=== PATIENT | female | born 1960 | race African-American/Black ===

== ENCOUNTER 2016-09-11 12:58 | Inpatient (IN) | payer OTHER ==
[~2016-09-11] VITALS: Ht 160 cm; Wt 52.2 kg
[2016-09-11] VITALS (28 sets, daily range): BP systolic 64–155; BP diastolic 37–139
--- NOTE | ~2016-09-11 | CRIT ---
[facility] [place] [address] [place] [address] CRITICAL CARE NOTE Name: JACOB HANNON Room #: 245-P ADM IN M.R.#: [id number] Admission: 09/11/16 Attend Phys: Jameson Mike DO Discharge: Date of : 64 Report #: [id number] THIS REPORT FOR: //name// CC: Jameson Mike DATE OF SERVICE: 09/12/2016 REASON FOR CONSULTATION: Pressure ulcer of the coccyx. HISTORY OF PRESENT ILLNESS: The patient is a very pleasant 56-year-old woman with diabetes mellitus type 2, who has a known sacrococcygeal pressure ulcer and has been seen by Dr. Ruiz Wellington in his outpatient clinics. She is a resident of [facility]. The patient was admitted through the Emergency Room at [facility] yesterday for sepsis with radiograph showing bilateral pulmonary infiltrates and suspected healthcare-associated pneumonia and leukocytosis with elevated white blood count of 22.9 yesterday and 18.4 today. Wound care is consulted due to a sacral or coccygeal pressure ulcer. The patient states that she has had a pressure ulcer in that area for as much as a couple of years and the wound is known to Dr. Ruiz Wellington. Her has noted that the wound has been there for a long time, possibly a couple of years. PAST MEDICAL HISTORY: Diabetes mellitus type 2, asthma, gastroesophageal reflux, history of fibroid tumor, hypertension, history of atrial fibrillation with cardiac ablation, steroid-dependent asthma. MEDICATIONS: Including prednisone 40 mg a day. The patient is now on intravenous antibiotics for her pneumonia, intravenous Zosyn, and vancomycin. It is noted that the patient has severe protein-calorie malnutrition with serum albumin of 1.7. ALLERGIES: The patient has allergies to PROCHLORPERAZINE, SULFA, and KETOROLAC. SOCIAL HISTORY: The patient lives in [facility]. Her is living and very supportive. The patient is a nonsmoker. REVIEW OF SYSTEMS: The patient has debilitating steroid-dependent asthma. PHYSICAL EXAMINATION: GENERAL: Shows an alert and conversant, chronically ill-appearing elderly woman. HEENT: Mucous membranes are moist. Temperature is 37. NECK: Supple. CHEST: Shows decreased breath sounds bilaterally. ABDOMEN: Soft. There are no wounds of the lower extremities. The patient does have an olecranon bursa of the right elbow. Examination of the distal sacrococcygeal area shows an open 1.2 x 1.2 cm ulcer. There is circumferential [address] [address] CRITICAL CARE NOTE Name: JACOB HANNON Room #: 245-P [facility] IN [facility]#: [id number] Admission: 09/11/16 Attend Phys: Jameson Mike, Discharge: Date of : 64 Report #: [id number] undermining of the skin with a wound underneath the ulcer measuring approximately 3 x 4 cm. At the base of the ulcer with my gloved finger, I can palpate rough bone spicules of the coccyx rendering the clinical working diagnosis of osteomyelitis of the coccyx. There is moderate drainage from the wound with no surrounding cellulitis. IMPRESSION: 1. Diabetes mellitus type 2 with skin ulcer. 2. Severe protein-calorie malnutrition, albumin 1.7. 3. Admission with sepsis secondary to pneumonia. 4. Steroid-dependent asthma, on 40 mg of prednisone a day. 5. 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 PLAN: Continue IV antibiotics, Zosyn and vancomycin for the patient's pneumonia. We will pack the wound with Mepilex AG. Once the patient is medically stabilized, ____ management of her sacrococcygeal wound would be open debridement of the wound in the OR with unroofing of the wound to make it larger and easier to treat and debridement and culture of the open spiculated bone, which is clinical osteomyelitis. Wound healing could then be attempted by conventional wound care methods of wound packing or negative pressure wound therapy. We will wait to schedule any operative debridement until the patient's pneumonia is cleared and she is stabilized. We will discuss her case with Dr. Ruiz Wellington, who knows her well. <ELECTRONICALLY SIGNED> By: Rigoberto Palacios MD 09/13/16 1118 1424 0052 Rigoberto Palacios MD /nt
--- NOTE | ~2016-09-11 | O ---
[facility] [place] [address] OPERATIVE REPORT Name: JACOB HANNON Room #: 450-P [facility] IN M.R.#: [id number] Admission: 09/11/16 Attend Phys: Jameson Mike DO Discharge: 09/18/16 Date of : 64 Report #: [id number] THIS REPORT FOR: //name// CC: Jameson Mike DATE OF SERVICE: 09/14/2016 PREOPERATIVE DIAGNOSIS: Chronic stage 4 sacral pressure ulcer with exposed rough bone, clinical osteomyelitis. POSTOPERATIVE DIAGNOSES: Chronic stage 4 sacral pressure ulcer with exposed rough bone, clinical osteomyelitis with chronic sacral pressure sore with large fibrous capsule and exposed area of rough cortical bone (debridement wound 5 cm x 5 cm x 0.4 cm deep). PROCEDURE: Excisional debridement of skin, subcutaneous tissue, muscle, fascia, and bone. PLASTICS PLATER: Rigoberto Palacios MD. ANESTHESIA: Intravenous sedation, local Marcaine 0.25% with epinephrine. INDICATION: The patient is a 56-year-old woman with diabetes and a chronic sacral pressure sore which has been present for as much as 2 years. This was chronic nonhealing. Examination showed at the base of the wound rough bone spicules consistent with bone involvement and clinical osteomyelitis. The patient had been hospitalized for aspiration pneumonia. The patient was stabilized. Informed consent was obtained for excisional debridement of skin, subcutaneous tissue, muscle, fascia, and bone. PROCEDURE DESCRIPTION: With the patient lying in left lateral decubitus position under light intravenous sedation and secured in place. The sacral area was prepared with Betadine solution, sterilely draped in usual fashion. Exam under anesthesia showed an external skin wound measuring approximately 1.5 x 1.5 cm. At the base of the wound, there was exposed rough cortical bone. Marcaine 0.25% with epinephrine was locally infiltrated. Needle tip electrocautery was used to enlarge the external skin opening and an ellipse of skin was incised. It was seen that the patient had a chronic fibrous capsule involving the wound, which was quite large. Using the needle tip electrocautery, skin, subcutaneous tissue, muscle and fascia were excised in such a fashion that the entire fibrous capsule was removed. The fibrous capsule extended to a smaller 1 x 1 cm area of exposed rough bone. The entire capsule of skin, subcutaneous, connective tissue, muscle and fascia was excised. Dealing with the area of bone, a bone rongeur was used to remove the exposed diseased bone, which was relatively limited involvement and it was not necessary to do a deep debridement. Debridement of the bone was relatively superficial. The bone bled. [facility] [address] [address] OPERATIVE REPORT Name: JACOB HANNON Room #: 450-P [facility] IN M.R.#: [id number] Admission: 09/11/16 Attend Phys: Jameson Mike DO Discharge: 09/18/16 Date of : 64 Report #: [id number] hemostasis was achieved. Bone removed was sent for tissue culture. The resulting wound after dissection was a 3 x 3 cm skin wound with a 5 x 5 cm subcutaneous wound making an area of debridement 5 x 5 cm and 0.4 cm deep. Hemostasis was complete. Sterile saline pack was placed. The patient tolerated procedure well. She will be seen by Ayanna Neely, the wound care nurse and wound VAC therapy likely instituted day after surgery. Discussed with Dr. Ruiz Wellington. <ELECTRONICALLY SIGNED> By: Rigoberto Palacios MD 09/19/16 1228 1152 1228 Rigoberto Palacios MD /nt
--- NOTE | ~2016-09-11 | S ---
[facility] [place] [address] SURGICAL PATH RPT PROCEDURE Name: JACOB HANNON Room #: 450-P ADM IN M.R.#: [id number] Admission: 09/11/16 Date of : 64 Discharge: Report #: [id number] Path Case #: [id number] PATHOLOGY REPORT COLLECTION DATE: 09/14/2016 RECEIVED DATE: 09/14/2016 SUBMITTING PHYS: Dr. Rigoberto Palacios OTHER PHYS: Dr. Jameson Mike SPECIMEN(S) RECEIVED: A.Sacral wound tract * * * * * * * * * * * * FINAL DIAGNOSIS: Sacral wound tract, debridement: - Ulceration along with gangrenous necrosis as well as acute inflammation extending into underlying subcutaneous tissue consistent with a wound tract/ulcer. (IUV:csd; d/t: 09/16/2016) PATHOLOGIST: Lydia Roberts M.D. REPORT ELECTRONICALLY SIGNED BY: Lydia Roberts M.D. DATE/TIME: 09/16/2016 16:17 * * * * * * * * * * * * GROSS PATHOLOGY: The specimen is received in formalin, labeled "Jacob Hannon sacral wound tract". Received is an unoriented ellipse of skin with attached subcutaneous tissue measuring 3.5 x 3.2 x 1.5 cm. The epidermal surface displays a linear area of excision that displays a subcutaneous wound tract measuring 3.0 cm. No solid masses or nodules are identified. [employer] sections are submitted in cassette A1. (SNA; 09/15/2016) CLINICAL HISTORY: Chronic sacrococcygeal ulcer stage IV INITIAL CPT CODE(S): A; 75456 Professional services performed by [facility] at [facility] [address] [facility] [address] , [place] [address] Technical services performed by [facility] at [address] [place] [address] [place] [address] SURGICAL PATH RPT PROCEDURE Name: JACOB HANNON Room #: 450-P [facility] IN ..#: [id number] Admission: 09/11/16 Date of : 64 Discharge: Report #: [id number] Path Case #: [id number] [place] [address]. [facility] [address] [address] PHONE: [phone] DIRECTOR: Shabbir Garza M.D. * * * END OF REPORT * * *
--- NOTE | ~2016-09-11 | HC ---
[facility] [address] [place] [address] CONSULTATION Name: JACOB HANNON Room #: 245-P [facility] IN M.R.#: [id number] Admission: 09/11/16 Attend Phys: Jameson Mike DO Discharge: Date of : 64 Report #: [id number] THIS REPORT FOR: //name// CC: Jameson Mike DATE OF SERVICE: 09/11/2016 REASON FOR CONSULTATION: I was asked by Dr. Mike to evaluate the patient concerning sepsis and suspected healthcare-associated pneumonia. HISTORY OF PRESENT ILLNESS: The patient is a 56-year-old with a history of diabetes, asthma and gastroesophageal reflux. She had had a right olecranon bursitis several weeks ago treated at [facility]. Then at [facility], she developed nausea and vomiting and then became encephalopathic, unresponsive and transported to the Emergency Room. There, blood pressure was low. Now on IV fluids and O2 supplementation with a face mask. She has had cough reported with minimal sputum production. No hemoptysis. No chest pain. She has chronic back pain, which she takes fentanyl patchy to control. She states that her nausea has resolved. No diarrhea. No dysuria or frequency. ALLERGIES: PROCHLORPERAZINE, SULFA and KETOROLAC. MEDICATIONS: As noted on her MAR including prednisone 40 mg a day for her asthma. PAST MEDICAL HISTORY: Asthma, gastroesophageal reflux, diabetes, fibroid tumors, hypertension, sinus disease, atrial fibrillation with a heart ablation and neuropathy. FAMILY HISTORY: Noncontributory. SOCIAL HISTORY: Nonsmoker, no significant alcohol intake. REVIEW OF SYSTEMS: As noted above with no additions. PHYSICAL EXAMINATION: VITAL SIGNS: Temperature 99.4, pulse 110, blood pressure 82/41, now on 15 liters and nonrebreather. GENERAL: She is alert and cooperative. SKIN: She has a stage 4 sacral decubitus over the coccyx, approximately 1 cm diameter. It does tunnel several centimeters. Right elbow 1+ olecranon swelling and mild tenderness in the area. Full range of motion in the elbow. No adenopathy. HEENT: Otherwise, unremarkable. NECK: Supple. LUNGS: Coarse breath sounds posterior, no consolidation. [facility] [address] [place] [address] CONSULTATION Name: JACOB HANNON Room #: 245-P [facility] IN M.R.#: [id number] Admission: 09/11/16 Attend Phys: Jameson Mike DO Discharge: Date of : 64 Report #: [id number] HEART: Regular without murmur. ABDOMEN: Soft and nontender, no hepatosplenomegaly or mass. EXTREMITIES: Unremarkable. LABORATORY STUDIES: Lactate was 0.6. ABG on 100% face mask showed a pO2 of 92, pCO2 of 49 and pH 7.39. Sodium 141, potassium 5, bicarbonate of 33, creatinine 1.2, AST 25, lipase 70, alkaline phosphatase 96, ALT 37 and albumin of 2.2. Hemoglobin 9.5, white count 22.9, platelet count 280,000, 73% segs and 1% band. Electrocardiogram, sinus tach, left atrial enlargement, old anterior infarct. Blood cultures are pending. Nasopharyngeal swab influenza antigen pending. Chest x-ray, bilateral patchy interstitial infiltrates with patchy alveolar changes as well. IMPRESSION: A 56-year-old with steroid-dependent asthma and recent right olecranon bursitis, now with suspected healthcare-associated aspiration pneumonia. She had leukocytosis and hypoxia. Her troponin was negative and BNP was moderately elevated at 2000. PLAN: Recommend continuing healthcare-associated antibiotic program while awaiting cultures of sputum and blood. Screens for MRSA. Continue corticosteroids for her asthma. Continue fluid resuscitation and Intensive Care Unit monitoring. <ELECTRONICALLY SIGNED> By: Vitaliy Palmer MD 09/12/16 0935 [id number] [id number] Vitaliy Palmer MD /nt
--- NOTE | ~2016-09-11 | D ---
[facility] [address] [address] DISCHARGE SUMMARY Name: JACOB HANNON Room #: 450-[facility] IN M.R.#: [id number] Admission: 09/11/16 Attend Phys: Jameson Mike DO Discharge: 09/18/16 Date of : 64 Report #: [id number] THIS REPORT FOR: //name// CC: Vitaliy Escobar MD DATE OF SERVICE: 09/18/2016 HOSPITAL COURSE: This 56-year-old black female was admitted from her extended care facility after vomiting and becoming responsive and dropping her blood pressure down to 70 systolic. Chest x-ray on admission suggested multifocal pneumonia. Her past history was significant for multiple comorbidities, just recently discharged from [facility] 09/03/2016 after being treated for cellulitis of the right forearm, right before that she had been admitted there with septic shock and acute kidney failure likely secondary to pneumonia. 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 Churg-Jose syndrome with the eosinophilic granulomatosis diagnosed in 2003 at the [facility]. Septic arthritis of the right shoulder and chronic anxiety, depression. HOSPITAL COURSE: PHYSICAL EXAMINATION: GENERAL: Initial physical revealed a septic appearing hypotensive black female, cushingoid appearance was evident. HEENT: Head and neck was essentially negative. There was no oral thrush. LUNGS: Revealed scattered rhonchi. HEART: Cardiac exam slight tachycardia. ABDOMEN: Soft and nontender. EXTREMITIES: No open sores or significant edema or cellulitis. Sacral wound was deep, but looked clean grossly. NEUROLOGIC: She was alert and oriented, but poor historian. LABORATORY DATA: White cell count was elevated to 22,000, hemoglobin 9.5. Lactic acid normal. , CO2 33, BUN 27, estimated GFR 57. Blood sugar 124, magnesium 1.5. Liver enzymes normal. Albumin low at 2.2. Cardiac enzymes normal. EKG showed sinus tachycardia. The patient was admitted to ICU, seen in consult by Dr. Vitaliy Palmer of Infectious Disease who ordered broad spectrum antibiotics for possible aspiration pneumonia and healthcare-associated pneumonia. Also seen by Dr. Ruiz peñaloza for wound care and after stabilization, he performed a debridement of the wound, also seen Dr. Daniel Escobar [address] [address] DISCHARGE SUMMARY Name: JACOB HANNON Room #: 450-[facility] IN [facility].#: [id number] Admission: 09/11/16 Attend Phys: Jameson Mike, Discharge: 09/18/16 Date of : 64 Report #: [id number] of pulmonary. The patient progressed slowly. Her appetite was poor. Her final hemoglobin was 8 grams, white cell count 8700. Sodium 137, potassium 4.5, BUN 16, creatinine 0.4, estimated GFR 202, blood sugar 147, calcium 7.9, magnesium 1.5. Iron saturation low at 7%. Serum albumin low at 1.9. The patient had physical therapy and required 2 people assist to get up and transfer, her appetite was marginal and she was recommended to consider a feeding tube, if she does not eat enough or for protein levels do not improve. She is considering this. Dr. Ruiz Wellington recommended a wound VAC to be placed at LTAC when she arrives. On 09/18/2016, she was transferred to [facility] on diabetic diet. DuoNeb treatments q. 4 hours while awake. MEDICATIONS: Fentanyl 25 mcg patch every 72 hours, meropenem 500 mg daily for another 10 days through internal jugular central line, flecainide 100 mg b.i.d., diltiazem mg t.i.d., Levemir 20 units nightly, ferrous sulfate 325 mg daily, Eliquis 2.5 mg b.i.d., fenofibrate 160 mg daily, atorvastatin 20 mg daily, lisinopril 20 mg daily, Dilaudid 1 mg IV q. 4 hours p.r.n. severe pain, oxycodone 5 mg q. 6 hours p.r.n. pain, tramadol 100 mg q. 6 hours p.r.n. pain, Lyrica 75 mg b.i.d., citalopram 20 mg daily, hydroxyzine 25 mg t.i.d. p.r.n. itching, Rozerem 8 mg q. p.r.n. sleep, furosemide 40 mg b.i.d., Symbicort 160/4.5 two puffs b.i.d., Mucinex 1200 mg b.i.d., docusate 100 mg b.i.d., famotidine 20 mg b.i.d., prednisone 40 mg daily, metformin 500 mg b.i.d., melatonin 3 mg at bedtime and NovoLog sliding scale 5 units before meals for sugar 150-199, 10 units for 200-249 and 50 units for over 250. If sugars are over 200 twice or 400, physicians to be contacted. Change to change insulin orders. She also remains on Tradjenta 5 mg daily. Overall, prognosis is very guarded as patient has multiple chronic issues and is slowly deteriorating. FINAL DIAGNOSES: 1. Septic shock due to aspiration pneumonia. 2. Stage IV sacral decubitus ulcer. 3. Steroid-dependent chronic obstructive pulmonary disease. 4. Chronic immunosuppression. 5. Severe protein calorie malnutrition. 6. Diabetes mellitus type 2 with neuropathy. 7. Hypertension. 8. History of ventricular tachyarrhythmias. 9. Anxiety, depression. 10. Hyperlipidemia. 11. Obstructive sleep apnea. [facility] [address] [place] [address] DISCHARGE SUMMARY Name: PARVEZMILANSA LARSON Room #: 450-P [facility] IN M.R.#: [id number] Admission: 09/11/16 Attend Phys: Jameson Mike DO Discharge: 09/18/16 Date of : 64 Report #: [id number] 12. Gastroesophageal reflux disease. 13. Hypomagnesemia. By: 0809 0921 Jameson Mike DO /nt
--- NOTE | ~2016-09-11 | H ---
[facility] [place] [address] [place] [address] HISTORY AND PHYSICAL Name: JACOB HANNON Room #: 450-P ADM IN M.R.#: [id number] Admission: 09/11/16 Attend Phys: Jameson Mike DO Discharge: Date of : 64 Report #: [id number] THIS REPORT FOR: //name// CC: Jameson Mike DATE OF SERVICE: 09/11/2016 LOCATION: Room #245. HISTORY OF PRESENT ILLNESS: This 56-year-old black female was admitted through the Emergency Room after having vomited once and becoming unresponsive at the [facility], [facility], where she recently moved. Paramedics were called, and she was found to be responsive but had a blood pressure of only 70 systolic. She was brought to the Emergency Room where she has been given fluid resuscitation, and chest x-ray suggested multifocal pneumonia. The patient and her daughter state the patient seemed well yesterday, having been just discharged from [facility] on 09/03/2016 after having been treated for a cellulitis of her right elbow and forearm. Just before that, she had been discharged from [facility] on 08/20/2016 after being admitted with septic shock and acute kidney failure believed secondary to pneumonia. 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 GYNECOLOGIC HISTORY: Gravid 3, para 3. MEDICATIONS: On admission, CPAP at 10 cm nightly, Eliquis 5 mg b.i.d., oxycodone IR 5 mg q.6h. p.r.n. pain, fentanyl 25 mcg every 72 hours, morphine cream 20 mg with Silvadene 200 g to the sacral ulcer daily, atorvastatin 20 mg daily, flecainide 100 mg daily, Citalopram 20 mg daily, ferrous sulfate 325 mg daily, loratadine 10 mg daily, multivitamin 1 daily, docusate 100 mg b.i.d., Symbicort 160/4.5 two puffs b.i.d., melatonin 3 mg at bedtime, hydroxyzine 25 mg t.i.d., diltiazem 60 mg t.i.d., guaifenesin 40 mg t.i.d., fenofibrate 160 mg daily, furosemide 40 mg b.i.d., Lyrica 75 mg b.i.d., Zolpidem 10 mg p.r.n. sleep, DuoNeb 4 times a day, doxycycline 100 mg b.i.d. since discharge from [facility] for cellulitis of her right forearm, alprazolam 0.25 mg q.6h. p.r.n. anxiety, prednisone 40 mg daily, lisinopril 20 mg daily, NovoLog 10 units before [facility] [address] [place] [address] HISTORY AND PHYSICAL Name: JACOB HANNON Room #: 450-P [facility] IN M.R.#: [id number] Admission: 09/11/16 Attend Phys: Jameson Mike, DO Discharge: Date of : 64 Report #: [id number] meals; however, if her sugar is 200-245, she takes an additional 5 units; for sugars 250-290, additional 8 units and for over 300, she is to call nurses to call for orders. ALLERGIES: COMPAZINE, SULFA, ADHESIVE TAPE and TORADOL. REVIEW OF SYSTEMS: The patient when she is well is able to walk a few feet with a walker. She had not been nauseated before vomiting earlier today. She enjoys where she is living. She denies chest pain. Says she has been having a lot of yellow sputum, having difficulty coughing it up. PHYSICAL EXAMINATION: GENERAL: Tachypneic hypotensive black female who recognized me immediately, looking chronically ill. VITAL SIGNS: Blood pressure 77/66, pulse 110, respirations 20 and temperature 37.4. HEAD: Cushingoid appearance. No rash. EARS, NOSE AND THROAT: Mucosa dry. No oral thrush. EYES: No icterus. NECK: Supple. LUNGS: Cough is bronchitic. Lungs revealed diffuse rhonchi. Usually she has wheezing or rhonchi in her lungs on a chronic basis. HEART: Tachycardia without gallop. ABDOMEN: Soft, without mass or tenderness. EXTREMITIES: No edema or cellulitis. SKIN: She has a small, deep coccyx ulcer which is approximately 4 cm in diameter, which looks clean. NEUROLOGIC: She is alert and oriented, is a fairly accurate historian. No lateralized deficits. RADIOLOGY: Chest x-ray shows multifocal infiltrates. LABORATORY DATA: Lactate normal. White count 22,000 and hemoglobin 9.5. Sodium 141, potassium 5.0, CO2 of 33, BUN 27 and creatinine ____. Estimated GFR 57. Blood sugar 124. Magnesium 1.5. Liver enzymes normal. Albumin low at 2.2. Lipase slightly below normal. Cardiac enzymes negative. EKG shows sinus tachycardia. IMPRESSION: 1. Septic shock, possibly secondary to pneumonia. 2. Chronic immunosuppression. 3. Steroid-dependent chronic obstructive pulmonary disease. 4. Obstructive sleep apnea. 5. Insulin-dependent diabetes mellitus with neuropathy. 6. Anxiety and depression. 7. Multiple osteoporotic compression fractures with chronic pain. [facility] [address] [place] [address] HISTORY AND PHYSICAL Name: PARVEZJACOB LARSON Room #: 450-P [facility] IN .R.#: [id number] Admission: 09/11/16 Attend Phys: Jameson Mike DO Discharge: Date of : 64 Report #: [id number] 8. History of supraventricular tachycardia. 9. Iron deficiency anemia. 10. History of Churg-Jose syndrome. 11. Stage 4 coccyx ulcer. PLAN: ID, pulmonary and wound care consultants, fluid rehydration, broad spectrum antibiotics, culture is pending, bronchodilators and steroids. PROGNOSIS: Guarded. The patient does request full code and all heroic measures. <ELECTRONICALLY SIGNED> By: Jameson Mike DO 09/16/16 0700 [id number] Jameson Mike DO /nt
--- NOTE | ~2016-09-11 | EKG ---
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
[~2016-09-11 12:58] MED LIST: ALBUTEROL NEB; BENICAR40 MG PO; FLEXERIL PO; GLUCOPHAGE; LANOXIN 0.120.125 M1 PG; LANTUS SC; NORCO 7.5-3251 EACH PO; NORFLEX100 MG PO; NOVOLOG100 UNIT/1 SQ; PERCOCET 5-3251 EACH PO; PREDNISONE PO; SPIRIVA INH; SYMBICORT; VERAPAMIL E.R240 M1 PO; VICODIN 5-5001 EACH PO
[2016-09-11 13:36] LABS: HEMATOCRIT 30.1 % (37.0-47.0); HEMOGLOBIN 9.5 gm/dL (12.0-15.0); MCH 27.1 pg (26.0-34.0); MCHC 31.5 g/dL (28.0-37.0); MCV 86.1 fL (80.0-100.0); PLATELET COUNT 280 thou/uL (150-400); RBC 3.49 mil/uL (4.20-5.00); RDW 20.3 % (10.5-14.5); WBC 22.9 thou/uL (4.0-11.0)
[2016-09-11 13:38] LABS: MANUAL DIFF YES
[2016-09-11 13:54] LABS: ABSOLUTE NEUTROPHILS 16.9 thou/uL (1.4-8.2); ANISOCYTOSIS 1+; TOTAL CELL COUNT 100
[2016-09-11 14:08] LABS: ALBUMIN 2.2 g/dL (3.4-5.0); ALKALINE PHOSPHATASE 96 U/L (46-116); ANION GAP 5 mmol/L (7-16); BUN 27 mg/dL (7-18); CALCIUM 8.6 mg/dL (8.5-10.1); CHLORIDE 103 mmol/L (98-107); CK-MB MASS 0.7 ng/mL (<0.5-3.6); CO2 33 mmol/L (21-32); CREATININE 1.2 mg/dL (0.6-1.0); GLUCOSE 124 mg/dL (74-106); MAGNESIUM 1.5 mg/dL (1.8-2.4); NT-PRO BRAIN NAT PEPTIDE 2115 pg/mL (<300); SGOT 25 U/L (15-37); SGPT 37 U/L (30-65); SODIUM 141 mmol/L (136-145); TOTAL BILIRUBIN 0.5 mg/dL (<0.1-1.0); TOTAL PROTEIN 6.3 g/dL (6.4-8.2); TROPONIN-I < 0.04 ng/mL (<0.04-0.07)
[2016-09-11 15:04] LABS: ABG SAMPLE TYPE ARTERIAL; BE(vivo) 4.5 mmol/L (-2 to +3); HCO3 30.1 mmol/L (22.0-26.0); LACTATE 1.04 mmol/L (0.5-2.0); O2Hb 94.5 % (92.0-98.0); PCO2 49.9 mmHg (35.0-45.0); PO2 92.4 mmHg (80.0-100.0); pH 7.399 (7.360-7.450); tCO2 31.7 mmol/L (24.0-30.0)
[2016-09-11 15:05] LABS: STICK SITE L.RADIAL
[2016-09-11 15:06] LABS: FIO2 100 %
[2016-09-11] MEDS ORDERED: FLECAINIDE ACET50 M1 PO (16:41)
[2016-09-11] MEDS ORDERED: PEPCID20 MG PO (16:41)
[2016-09-11] MEDS ORDERED: LIPITOR 20 MG T20 M1 PO (16:41)
[2016-09-11] MEDS ORDERED: IRON325 PO (16:42)
[2016-09-11] MEDS ORDERED: CLARITIN10 MG PO (16:42)
[2016-09-11] MEDS ORDERED: CELEXA20 MG PO (16:42)
[2016-09-11] MEDS ORDERED: COLACE100 MG PO (16:42)
[2016-09-11] MEDS ORDERED: HYDROXYZINE HCL25 M1 PO (16:43)
[2016-09-11] MEDS ORDERED: MELATONIN3 MG PO (16:43)
[2016-09-11] MEDS ORDERED: SYMBICORT160 MCG/4. INH (16:43)
[2016-09-11] MEDS ORDERED: TRADJENTA5 MG (16:44)
[2016-09-11] MEDS ORDERED: CARDIZEM60 MG PO (16:44)
[2016-09-11] MEDS ORDERED: METFORMIN HCL500 MG PO (16:44)
[2016-09-11] MEDS ORDERED: LASIX 40 MG TAB40 M2 PO (16:44)
[2016-09-11] MEDS ORDERED: FENOFIBRATE160 MG PO (16:44)
[2016-09-11] MEDS ORDERED: LYRICA 75 MG CA75 MG PO (16:45)
[2016-09-11] MEDS ORDERED: FENTANYL PA50 MCG/HR TRANSDERM (17:08)
[2016-09-11] MEDS ORDERED: OXYCODONE HCL 55 MG PO (17:08)
[2016-09-11] MEDS ORDERED: LISINOPRIL20 MG PO (17:09)
[2016-09-11] MEDS ORDERED: NOVOLOG100 UNIT/1 SUBQ (17:09)
[2016-09-11] MEDS ORDERED: PREDNISONE 20 M20 MG PO (17:09)
[2016-09-11] MEDS ORDERED: LEVEMIR SUBQ (17:09)
[2016-09-11] MEDS ORDERED: ELIQUIS2.5 MG PO (17:10)
[2016-09-11] MEDS ORDERED: TRAMADOL 50 MG50 MG PO (17:10)
[2016-09-11] MEDS ORDERED: MUCINEX TA600 MG/TA2 PO (17:10)
[2016-09-11] MEDS ORDERED: ROZEREM 8 MG TAB8 M1 PO (17:10)
[2016-09-11 20:00] LABS: URINE BILIRUBIN NEGATIVE (Negative); URINE BLOOD 2+ (Negative); URINE COLOR YELLOW; URINE GLUCOSE-RANDOM* 2+ (Negative); URINE KETONES TRACE (Negative); URINE LEUKOCYTES-REFLEX NEGATIVE (Negative); URINE PROTEIN (DIPSTICK) TRACE (Negative); URINE UROBILINOGEN 0.2 E.U./dl (0.2-1.0)
[2016-09-11 20:07] LABS: SQUAMOUS 0-3 Few /LPF (0-3)
[2016-09-11 20:08] LABS: CASTS None Seen /LPF (None Seen); CRYSTALS None Seen /LPF (None Seen); URINE RBC 3-10 Few /HPF (0-2); URINE WBC-REFLEX 0-5 Rare /HPF (0-5)
[2016-09-12] VITALS (56 sets, daily range): BP systolic 67–146; BP diastolic 45–104
[2016-09-12 05:21] LABS: HEMATOCRIT 27.4 % (37.0-47.0); HEMOGLOBIN 8.4 gm/dL (12.0-15.0); MCH 26.9 pg (26.0-34.0); MCHC 30.7 g/dL (28.0-37.0); MCV 87.6 fL (80.0-100.0); PLATELET COUNT 239 thou/uL (150-400); RBC 3.13 mil/uL (4.20-5.00); WBC 18.4 thou/uL (4.0-11.0)
[2016-09-12 05:24] LABS: ALBUMIN 1.7 g/dL (3.4-5.0); ALKALINE PHOSPHATASE 101 U/L (46-116); ANION GAP 9 mmol/L (7-16); BUN 24 mg/dL (7-18); CALCIUM 7.2 mg/dL (8.5-10.1); CHLORIDE 108 mmol/L (98-107); CO2 24 mmol/L (21-32); CREATININE 0.9 mg/dL (0.6-1.0); GLUCOSE 291 mg/dL (74-106); POTASSIUM 4.9 mmol/L (3.5-5.1); SGOT 25 U/L (15-37); SGPT 30 U/L (30-65); SODIUM 141 mmol/L (136-145); TOTAL BILIRUBIN 0.5 mg/dL (<0.1-1.0); TOTAL PROTEIN 5.7 g/dL (6.4-8.2); TROPONIN-I < 0.04 ng/mL (<0.04-0.07)
[2016-09-12 05:41] LABS: MANUAL DIFF YES
[2016-09-12 07:51] LABS: ABSOLUTE NEUTROPHILS 17.7 thou/uL (1.4-8.2); ANISOCYTOSIS 2+; TOTAL CELL COUNT 100
[2016-09-12 07:52] LABS: POLYCHROMASIA OCCASIONAL
[2016-09-13] VITALS (21 sets, daily range): BP systolic 92–129; BP diastolic 55–85
[2016-09-13 04:02] LABS: ALBUMIN 1.8 g/dL (3.4-5.0); CALCIUM 6.9 mg/dL (8.5-10.1); CREATININE 0.8 mg/dL (0.6-1.0); POTASSIUM 4.2 mmol/L (3.5-5.1); TOTAL BILIRUBIN 0.3 mg/dL (<0.1-1.0); TOTAL PROTEIN 5.3 g/dL (6.4-8.2)
[2016-09-13 04:40] LABS: HEMATOCRIT 24.4 % (37.0-47.0); HEMOGLOBIN 7.6 gm/dL (12.0-15.0); MCH 27.4 pg (26.0-34.0); MCV 88.5 fL (80.0-100.0); PLATELET COUNT 231 thou/uL (150-400); RBC 2.76 mil/uL (4.20-5.00); RDW 20.7 % (10.5-14.5); WBC 12.4 thou/uL (4.0-11.0)
[2016-09-13 04:42] LABS: MANUAL DIFF YES
[2016-09-13 05:49] LABS: ABSOLUTE NEUTROPHILS 11.5 thou/uL (1.4-8.2); ANISOCYTOSIS 2+; HYPOCHROMASIA SLIGHT; TOTAL CELL COUNT 100
[2016-09-14 07:08] LABS: HEMATOCRIT 25.1 % (37.0-47.0); HEMOGLOBIN 7.8 gm/dL (12.0-15.0); MCH 27.4 pg (26.0-34.0); MCHC 31.3 g/dL (28.0-37.0); MCV 87.7 fL (80.0-100.0); RBC 2.86 mil/uL (4.20-5.00); RDW 19.6 % (10.5-14.5)
[2016-09-14 07:22] LABS: CALCIUM 7.5 mg/dL (8.5-10.1); CREATININE 0.6 mg/dL (0.6-1.0); POTASSIUM 4.3 mmol/L (3.5-5.1)
[2016-09-14 08:00] VITALS: BP 122/67
[2016-09-14 11:30] VITALS: BP 152/91
[2016-09-14 14:00] VITALS: BP 104/50
[2016-09-14 16:00] VITALS: BP 115/59
[2016-09-14 20:06] VITALS: BP 117/54
[2016-09-15] VITALS (10 sets, daily range): BP systolic 93–149; BP diastolic 40–85
[2016-09-15 04:57] LABS: HEMATOCRIT 25.8 % (37.0-47.0); HEMOGLOBIN 8.2 gm/dL (12.0-15.0); MCH 27.7 pg (26.0-34.0); MCHC 31.7 g/dL (28.0-37.0); MCV 87.3 fL (80.0-100.0); RBC 2.95 mil/uL (4.20-5.00); RDW 20.1 % (10.5-14.5); WBC 9.7 thou/uL (4.0-11.0)
[2016-09-15 05:07] LABS: CALCIUM 8.6 mg/dL (8.5-10.1); CREATININE 0.7 mg/dL (0.6-1.0); POTASSIUM 4.6 mmol/L (3.5-5.1)
[2016-09-16 04:11] VITALS: BP 122/62
[2016-09-16 07:28] LABS: HEMATOCRIT 24.5 % (37.0-47.0); MCH 27.4 pg (26.0-34.0); MCHC 32.5 g/dL (28.0-37.0); MCV 84.5 fL (80.0-100.0); RBC 2.9 mil/uL (4.20-5.00); RDW 19.8 % (10.5-14.5); WBC 8.7 thou/uL (4.0-11.0)
[2016-09-16 07:42] LABS: ALBUMIN 1.9 g/dL (3.4-5.0); CALCIUM 7.9 mg/dL (8.5-10.1); CREATININE 0.4 mg/dL (0.6-1.0); POTASSIUM 4.5 mmol/L (3.5-5.1); TOTAL BILIRUBIN 0.4 mg/dL (<0.1-1.0); TOTAL PROTEIN 5.4 g/dL (6.4-8.2)
[2016-09-16 08:11] VITALS: BP 136/81
[2016-09-16 12:00] VITALS: BP 150/77
[2016-09-16 16:00] VITALS: BP 136/66
[2016-09-16 20:00] VITALS: BP 152/74
[2016-09-17 04:00] VITALS: BP 170/98
[2016-09-17 07:14] VITALS: BP 150/76
[2016-09-17] MEDS ORDERED: DUONEB 2.5-0.5 M3 ML INH (07:32)
[2016-09-17] MEDS ORDERED: FENTANYL PA25 MCG/HR TRANSDERM ×3 (07:33→07:41)
[2016-09-17] MEDS ORDERED: MEROPENEM IV (07:36)
[2016-09-17] MEDS ORDERED: HYDROMORPH1 MG/50 ML IV ×2 (07:37→07:41)
[2016-09-17] MEDS ORDERED: IRON325 PO (07:39)
[2016-09-17] MEDS ORDERED: ELIQUIS2.5 MG PO (07:39)
[2016-09-17] MEDS ORDERED: FENOFIBRATE160 MG PO (07:40)
[2016-09-17] MEDS ORDERED: LIPITOR 20 MG T20 M1 PO (07:40)
[2016-09-17] MEDS ORDERED: LISINOPRIL20 MG PO (07:40)
[2016-09-17] MEDS ORDERED: LYRICA 75 MG CA75 MG PO (07:41)
[2016-09-17] MEDS ORDERED: OXYCODONE HCL 55 MG PO (07:41)
[2016-09-17] MEDS ORDERED: CELEXA20 MG PO (07:41)
[2016-09-17] MEDS ORDERED: TRAMADOL 50 MG50 MG PO (07:41)
[2016-09-17] MEDS ORDERED: COLACE100 MG PO (07:42)
[2016-09-17] MEDS ORDERED: MUCINEX TA600 MG/TA2 PO (07:42)
[2016-09-17] MEDS ORDERED: SYMBICORT160 MCG/4. INH (07:42)
[2016-09-17] MEDS ORDERED: LASIX 40 MG TAB40 M2 PO (07:42)
[2016-09-17] MEDS ORDERED: HYDROXYZINE HCL25 M1 PO (07:42)
[2016-09-17] MEDS ORDERED: ROZEREM 8 MG TAB8 M1 PO (07:42)
[2016-09-17] MEDS ORDERED: METFORMIN HCL500 MG PO (07:43)
[2016-09-17] MEDS ORDERED: PEPCID20 MG PO (07:43)
[2016-09-17] MEDS ORDERED: PREDNISONE 20 M20 MG PO (07:43)
[2016-09-17] MEDS ORDERED: MELATONIN3 MG PO (07:45)
[2016-09-17] MEDS ORDERED: NOVOLOG100 UNIT/1 SUBQ (07:45)
[2016-09-17 11:46] VITALS: BP 141/78
[2016-09-17 15:38] VITALS: BP 129/75
[2016-09-17 19:08] VITALS: BP 160/89
[2016-09-18 03:35] VITALS: BP 159/82
[2016-09-18 07:20] VITALS: BP 125/77
[2016-09-18 11:15] VITALS: BP 137/82
== END 2016-09-18 16:22 | DRG 853 ==
LOC: ER 12:58 → EROBS 15:05 → ICU 15:05 → 4W 09-13 22:47
PROVIDERS: Emergency Medicine; Family Medicine; Internal Medicine; Internal Medicine Pulmonary Disease
PROC: B548ZZA Ultrasonography of Superior Vena Cava, Guidance (ICD-10-PCS; 2016-09-11)
PROC: 02HV33Z Insertion of Infusion Device into Superior Vena Cava, Percutaneous Approach (ICD-10-PCS; 2016-09-11)
PROC: 5A09357 Assistance with Respiratory Ventilation, Less than 24 Consecutive Hours, Continuous Positive Airway Pressure (ICD-10-PCS; 2016-09-12)
PROC: 0QB10ZZ Excision of Sacrum, Open Approach (ICD-10-PCS; principal; 2016-09-14)
DX: A41.9 Sepsis, unspecified organism (principal); L89.154 Pressure ulcer of sacral region, stage 4; E43 Unspecified severe protein-calorie malnutrition; R65.21 Severe sepsis with septic shock; J69.0 Pneumonitis due to inhalation of food and vomit; J96.90 Respiratory failure, unspecified, unspecified whether with hypoxia or hypercapnia; L03.114 Cellulitis of left upper limb; M30.1 Polyarteritis with lung involvement [Churg-Strauss]; M86.8X8 Other osteomyelitis, other site; G82.20 Paraplegia, unspecified; M80.00XA Age-related osteoporosis with current pathological fracture, unspecified site, initial encounter for fracture; J45.909 Unspecified asthma, uncomplicated; K21.9 Gastro-esophageal reflux disease without esophagitis; E11.40 Type 2 diabetes mellitus with diabetic neuropathy, unspecified; I10 Essential (primary) hypertension; J44.9 Chronic obstructive pulmonary disease, unspecified; I48.91 Unspecified atrial fibrillation; E83.42 Hypomagnesemia; L98.499 Non-pressure chronic ulcer of skin of other sites with unspecified severity; F41.9 Anxiety disorder, unspecified; F11.90 Opioid use, unspecified, uncomplicated; F32.9 Major depressive disorder, single episode, unspecified; E78.5 Hyperlipidemia, unspecified; G47.33 Obstructive sleep apnea (adult) (pediatric); G89.4 Chronic pain syndrome; D50.8 Other iron deficiency anemias; E11.69 Type 2 diabetes mellitus with other specified complication; Z79.4 Long term (current) use of insulin; Z88.2 Allergy status to sulfonamides; Z88.8 Allergy status to other drugs, medicaments and biological substances; Z79.52 Long term (current) use of systemic steroids; Z68.20 Body mass index [BMI] 20.0-20.9, adult; Z79.899 Other long term (current) drug therapy
CPT/HCPCS: 10047; 10078; 27000; 50010; 50101; 50386; 51636; 62110; 62900; 70005

== ENCOUNTER 2016-10-13 03:15 | Emergency (ER) | payer OTHER ==
[~2016-10-13] VITALS: Ht 160 cm; Wt 56.7 kg
[~2016-10-13 03:15] MED LIST changes: +CARDIZEM60 MG PO; +CELEXA20 MG PO; +CLARITIN10 MG PO; +COLACE100 MG PO; +DUONEB 2.5-0.5 M3 ML INH; +ELIQUIS2.5 MG PO; +FENOFIBRATE160 MG PO; +FENTANYL PA25 MCG/HR TRANSDERM; +FENTANYL PA50 MCG/HR TRANSDERM; +FLECAINIDE ACET50 M1 PO; +HYDROMORPH1 MG/50 ML IV; +HYDROXYZINE HCL25 M1 PO; +IRON325 PO; +LASIX 40 MG TAB40 M2 PO; +LEVEMIR SUBQ; +LIPITOR 20 MG T20 M1 PO; +LISINOPRIL20 MG PO; +LYRICA 75 MG CA75 MG PO; +MELATONIN3 MG PO; +MEROPENEM IV; +METFORMIN HCL500 MG PO; +MUCINEX TA600 MG/TA2 PO; +NOVOLOG100 UNIT/1 SUBQ; +OXYCODONE HCL 55 MG PO; +PEPCID20 MG PO; +PREDNISONE 20 M20 MG PO; +ROZEREM 8 MG TAB8 M1 PO; +SYMBICORT160 MCG/4. INH; +TRADJENTA5 MG; +TRAMADOL 50 MG50 MG PO
[2016-10-13] MEDS ORDERED: LEXAPRO 10 MG T10 M1 (03:41)
[2016-10-13] MEDS ORDERED: JUVEN PACKET1 EACH (03:42)
[2016-10-13] MEDS ORDERED: MIRALAX17 GM (03:43)
[2016-10-13] MEDS ORDERED: PULMICORT0.5 MG/22 (03:44)
[2016-10-13] MEDS ORDERED: ENOXAPARIN40 MG/0.1 SUBQ (03:45)
[2016-10-13] MEDS ORDERED: GLUCOSE GEL38 GM PO (03:46)
[2016-10-13] MEDS ORDERED: PREDNISONE 20 M20 MG PO (03:47)
[2016-10-13] MEDS ORDERED: VITAMINC500 (03:50)
[2016-10-13] MEDS ORDERED: ZINC SULFATE 2220 MG PO (03:51)
[2016-10-13] MEDS ORDERED: ONDANSETRON HCL4 M2 (03:52)
[2016-10-13] MEDS ORDERED: CITRATE OF MAG300 ML (03:52)
[2016-10-13] MEDS ORDERED: DILAUDID 2 MG TA2 MG PO (03:53)
[2016-10-13] MEDS ORDERED: TYLENOL325 MG PO (03:53)
[2016-10-13] MEDS ORDERED: LANTUS100 UNIT/M SUBQ (03:54)
[2016-10-13] MEDS ORDERED: HUMALOG100 UNIT/1 SUBQ (03:55)
[2016-10-13] MEDS ORDERED: DUONEB 2.5-0.5 M3 ML (03:56)
[2016-10-13] MEDS ORDERED: PROTONIX40 M1 PO (03:56)
[2016-10-13] MEDS ORDERED: BROVANA15 MCG/2 M INH (03:59)
[2016-10-13] MEDS ORDERED: LYRICA 75 MG CA75 MG PO (03:59)
[2016-10-13] MEDS ORDERED: DOXYCYCLINE 10100 MG PO (04:01)
== END 2016-10-13 05:21 | disposition home or self-care (01) ==
LOC: ER 03:15
DX: S09.8XXA Other specified injuries of head, initial encounter (principal); H57.12 Ocular pain, left eye; Z98.890 Other specified postprocedural states; J45.909 Unspecified asthma, uncomplicated; E11.40 Type 2 diabetes mellitus with diabetic neuropathy, unspecified; Z79.4 Long term (current) use of insulin; K21.9 Gastro-esophageal reflux disease without esophagitis; I10 Essential (primary) hypertension; Z88.2 Allergy status to sulfonamides; Z88.6 Allergy status to analgesic agent; Z88.8 Allergy status to other drugs, medicaments and biological substances; W06.XXXA Fall from bed, initial encounter; Y93.89 Activity, other specified; Y92.89 Other specified places as the place of occurrence of the external cause; Y99.8 Other external cause status

== ENCOUNTER 2016-12-02 21:26 | Emergency (ER) | payer OTHER ==
[~2016-12-02] VITALS: Ht 160 cm; Wt 59.0 kg
[~2016-12-02 21:26] MED LIST changes: +BROVANA15 MCG/2 M INH; +CITRATE OF MAG300 ML; +DILAUDID 2 MG TA2 MG PO; +DOXYCYCLINE 10100 MG PO; +DUONEB 2.5-0.5 M3 ML; +ENOXAPARIN40 MG/0.1 SUBQ; +GLUCOSE GEL38 GM PO; +HUMALOG100 UNIT/1 SUBQ; +JUVEN PACKET1 EACH; +KEFLEX500 MG PO; +LANTUS100 UNIT/M SUBQ; +LEXAPRO 10 MG T10 M1; +MIRALAX17 GM; +ONDANSETRON HCL4 M2; +PROTONIX40 M1 PO; +PULMICORT0.5 MG/22; +TYLENOL325 MG PO; +VITAMINC500; +ZINC SULFATE 2220 MG PO
[2016-12-02] MEDS ORDERED: ATIVAN0.5 MG PO (21:51)
== END 2016-12-03 00:56 ==
LOC: ER 21:26
DX: F41.9 Anxiety disorder, unspecified (principal); J45.909 Unspecified asthma, uncomplicated; K21.9 Gastro-esophageal reflux disease without esophagitis; E11.40 Type 2 diabetes mellitus with diabetic neuropathy, unspecified; E11.9 Type 2 diabetes mellitus without complications; I10 Essential (primary) hypertension; Z79.4 Long term (current) use of insulin; Z98.890 Other specified postprocedural states; Z88.8 Allergy status to other drugs, medicaments and biological substances; Z88.2 Allergy status to sulfonamides; Z88.6 Allergy status to analgesic agent

== ENCOUNTER 2016-12-04 04:09 | Emergency (ER) | payer OTHER ==
[~2016-12-04] VITALS: Ht 160 cm; Wt 59.0 kg
[~2016-12-04 04:09] MED LIST changes: +ATIVAN0.5 MG PO
== END 2016-12-04 07:35 | disposition home or self-care (01) ==
LOC: ER 04:09
DX: F41.9 Anxiety disorder, unspecified (principal); J45.909 Unspecified asthma, uncomplicated; K21.9 Gastro-esophageal reflux disease without esophagitis; E11.9 Type 2 diabetes mellitus without complications; E11.40 Type 2 diabetes mellitus with diabetic neuropathy, unspecified; I10 Essential (primary) hypertension; Z79.4 Long term (current) use of insulin; Z98.890 Other specified postprocedural states; Z88.2 Allergy status to sulfonamides; Z88.6 Allergy status to analgesic agent; Z88.8 Allergy status to other drugs, medicaments and biological substances

== ENCOUNTER → 2017-01-12 | Outpatient (CLI) | payer OTHER | LOC: HYPER 07:03 | DX: E11.622 Type 2 diabetes mellitus with other skin ulcer (principal); L98.411 Non-pressure chronic ulcer of buttock limited to breakdown of skin; L89.44 Pressure ulcer of contiguous site of back, buttock and hip, stage 4; L98.491 Non-pressure chronic ulcer of skin of other sites limited to breakdown of skin; J44.9 Chronic obstructive pulmonary disease, unspecified; G47.30 Sleep apnea, unspecified; I10 Essential (primary) hypertension; E11.40 Type 2 diabetes mellitus with diabetic neuropathy, unspecified; Z79.84 Long term (current) use of oral hypoglycemic drugs; Z79.4 Long term (current) use of insulin; Z90.710 Acquired absence of both cervix and uterus ==

== ENCOUNTER → 2017-02-02 | Outpatient (CLI) | payer OTHER | LOC: HYPER 07:03 | DX: E11.622 Type 2 diabetes mellitus with other skin ulcer (principal); L98.491 Non-pressure chronic ulcer of skin of other sites limited to breakdown of skin; L89.44 Pressure ulcer of contiguous site of back, buttock and hip, stage 4; Z79.84 Long term (current) use of oral hypoglycemic drugs; Z79.4 Long term (current) use of insulin; N19 Unspecified kidney failure; J44.9 Chronic obstructive pulmonary disease, unspecified; I10 Essential (primary) hypertension; E11.40 Type 2 diabetes mellitus with diabetic neuropathy, unspecified; Z90.710 Acquired absence of both cervix and uterus ==

== ENCOUNTER → 2017-02-23 | Outpatient (CLI) | payer OTHER | LOC: HYPER 14:45 | DX: E11.622 Type 2 diabetes mellitus with other skin ulcer (principal); L98.491 Non-pressure chronic ulcer of skin of other sites limited to breakdown of skin; L89.154 Pressure ulcer of sacral region, stage 4; N19 Unspecified kidney failure; J44.9 Chronic obstructive pulmonary disease, unspecified; I10 Essential (primary) hypertension; E11.40 Type 2 diabetes mellitus with diabetic neuropathy, unspecified; F41.9 Anxiety disorder, unspecified; Z90.710 Acquired absence of both cervix and uterus; Z79.4 Long term (current) use of insulin; Z79.84 Long term (current) use of oral hypoglycemic drugs ==

== ENCOUNTER → 2017-05-09 | Outpatient (CLI) | payer OTHER | LOC: HYPER 06:41 | DX: L89.154 Pressure ulcer of sacral region, stage 4 (principal); S81.801A Unspecified open wound, right lower leg, initial encounter; E11.622 Type 2 diabetes mellitus with other skin ulcer; L89.44 Pressure ulcer of contiguous site of back, buttock and hip, stage 4; J44.9 Chronic obstructive pulmonary disease, unspecified; G47.30 Sleep apnea, unspecified; I10 Essential (primary) hypertension; E11.40 Type 2 diabetes mellitus with diabetic neuropathy, unspecified; Z90.710 Acquired absence of both cervix and uterus; Z79.84 Long term (current) use of oral hypoglycemic drugs; Z79.4 Long term (current) use of insulin; Z98.49 Cataract extraction status, unspecified eye; X58.XXXA Exposure to other specified factors, initial encounter; Y93.89 Activity, other specified; Y92.89 Other specified places as the place of occurrence of the external cause; Y99.8 Other external cause status ==

== ENCOUNTER 2017-11-15 02:49 | Inpatient (IN) | payer OTHER ==
[~2017-11-15] VITALS: Ht 160 cm; Wt 69.0 kg
--- NOTE | ~2017-11-15 | EKG ---
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 : 1960 Requested By: Osman Engle Order Number: [id number] MD: Denzel Boogie Measurements Intervals [place] Rate: 124 P: 17 AL: 155 QRS: 66 QRSD: 94 T: -4 QT: 312 QTc: 448 Interpretive Statements Sinus tachycardia Poor R wave progression Artifact in lead(s) I,III,aVL,V3 Compared to ECG 09/11/2016 13:22:31 No significant change was found Electronically Signed On 11-17-2017 15:39:05 CDT by Denzel Boogie [email or web address] <ELECTRONICALLY SIGNED> By: Denzel Boogie MD, [facility] 11/17/17 1539 1303 1303 Denzel Boogie MD, [facility] /EPI
--- NOTE | ~2017-11-15 | HC ---
[facility] [place] [address] [place] [address] CONSULTATION Name: JACOB HANNON Room #: 242-P [facility] IN M.R.#: [id number] Admission: 11/15/17 Attend Phys: Osman Engle MD Discharge: Date of : 64 Report #: [id number] THIS REPORT FOR: //name// CC: Goyo Falconhens TYPE OF REPORT: Pulmonary consultation. REFERRAL PHYSICIAN: Osman Engle M.D. REASON FOR REFERRAL: Acute respiratory failure. HISTORY OF PRESENT ILLNESS: The patient is a 57-year-old -Latvian female who was known to this physician now with acute respiratory failure. A pulmonary consultation was requested. The patient has complex medical problems including long history of Churg-Jose, has been on chronic steroids over the past few years. She has had numerous hospitalizations over the past few years because of her pulmonary condition. She currently resides in a residential. She was brought to the Emergency Room following a fall. The patient had complained of back pain along with bleeding from a sacral pressure wounds. Since being admitted on 11/15/2017, she has been on narcotics. Over the last couple days ago, she has been less responsive. Today, she is more hypoxic, not easily aroused. She did arouse with Narcan. She was placed on BiPAP and transferred to the ICU. She is tolerating her BiPAP, though she is not very responsive. According to the nurse, she would response to vigorous stimuli such as putting an NG tube. Narcan drip has been ordered. PAST MEDICAL HISTORY: Long history of asthma, eventually diagnosed with Churg-Jose; chronic steroids; chronic sacral pressure wounds; anxiety disorder; gastroesophageal reflux disease; hypertension; diabetes mellitus type 2; fibroid tumors; hypertension; history of dysrhythmias, undergoing ablation and neuropathy. Previous pulmonary function shows severe pulmonary impairment; chronic pain, on chronic narcotics; multiple compression fractures due to osteoporosis from steroids; obstructive sleep apnea; history of supraventricular tachycardia as mentioned above; iron-deficiency anemia; WILTON; previous pseudomonas colonization from sputum cultures; chronic anxiety; depression; prior evaluation at [facility] in 2003, which was with subsequent diagnosis of eosinophilic granulomatosis consistent with Churg-Jose syndrome and history of septic arthritis. She has had numerous at [facility], [address] [address] CONSULTATION Name: JACOB HANNON Room #: 242-P [facility] IN [facility]#: [id number] Admission: 11/15/17 Attend Phys: Osman Engle MD Discharge: Date of : 64 Report #: [id number] [facility]. ALLERGIES: COMPAZINE, SULFA, TORADOL and ADHESIVE TAPE, reactions unspecified. CURRENT MEDICATIONS: Reviewed in the MAR. FAMILY HISTORY: Noncontributory. SOCIAL HISTORY: No tobacco or alcohol use. REVIEW OF SYSTEMS: As mentioned above, otherwise deferred as currently she is quite somnolent. PHYSICAL EXAMINATION: GENERAL: She is arousable only with strong physical stimulation. VITAL SIGNS: Temperature is 100.3 degrees Fahrenheit, pulse is 120, respiratory rate is 28, blood pressure is 158/110 mmHg and saturation 99%. HEENT: Normocephalic and atraumatic. NECK: Supple, without any lymphadenopathy or thyromegaly. CHEST: Breath sounds are fair but clear anteriorly. No obvious wheezes or rales are noted. CARDIOVASCULAR: Normal S1 and S2. There is no murmur or gallop. There is no JVD. There is no carotid bruit. Pulses are 2+/4+ bilaterally. ABDOMEN: Soft and nontender. No organomegaly or masses felt. GENITOURINARY: Deferred. RECTAL: Deferred. EXTREMITIES: There is no edema, cyanosis or clubbing. RADIOLOGICAL DATA: Chest x-ray shows mild interstitial changes seen in both lung walker, volume loss in the left. CT chest performed earlier on this admission revealed bilateral moderate cystic bronchiectasis with interstitial fibrosis. CT of pelvis without any acute changes. CT of the L-spine shows compression fractures involving L1, L2 and L5. LABORATORY DATA: Sodium 134, potassium 6.2, chloride 102, CO2 of 22, BUN is 57 and creatinine is 3.5, on admission which was normal. Albumin 2.2. WBC 14,900; hemoglobin 7.2 and platelets are normal. IMPRESSION: 1. Acute hypercapnic hypoxic respiratory failure in this 57-year-old -Latvian female. Etiology is likely due to narcotic use along with underlying chronic lung disease. 2. Long history of Churg-Jose, chronic steroids, severe pulmonary impairment. 3. Recent fall with bleeding from her sacral pressure wounds. She also has been on Eliquis, which has been on hold. Mild anemia has been noted. [facility] [address] [place] [address] CONSULTATION Name: JACOB HANNON Room #: 242-P [facility] IN M.R.#: [id number] Admission: 11/15/17 Attend Phys: Osman Engle MD Discharge: Date of : 64 Report #: [id number] 4. Encephalopathy, due to above including metabolic and toxic. 5. Acute kidney injury on chronic kidney disease, now with hyperkalemia. 6. Chronic back pain due to a fall. 7. Hypertension. 8. Anxiety and depression. RECOMMENDATIONS: We will continue noninvasive ventilation for now as tolerated. If she does not stabilize or improve, she may ultimately need intubation. We will keep saturation around 90%. Agree with a Narcan drip. If the patient's mental status does not improve, she may need intubation as mentioned above. We will continue the corticosteroids but stress dose steroids will be beneficial. Continue antibiotics as you are. Thank you for this consultation. <ELECTRONICALLY SIGNED> By: Daniel Escobar MD 11/19/17 1615 1628 0242 Daniel Escobar MD /nt
--- NOTE | ~2017-11-15 | HC ---
[facility] [address] [place] [address] CONSULTATION Name: JACOB HANNON Room #: 408-P ADM IN M.R.#: [id number] Admission: 11/15/17 Attend Phys: Osman Engle MD Discharge: Date of : 64 Report #: [id number] THIS REPORT FOR: //name// CC: Goyo Wellington PERSONAL PHYSICIAN: None on staff. CHIEF COMPLAINT: Bleeding sacral wound. HISTORY OF PRESENT ILLNESS: This is a 57-year-old black female who has a chronic sacral decubitus ulcer, who is actually scheduled to see me in clinic this morning, however, when she was getting up this morning to go to the restroom, she slipped and fell and landed directly on her sacral decubitus ulcer. The patient states that a snf staff was unable to get the bleeding to stop, so they brought to the Emergency Department for further evaluation. In the Emergency Department, there was some difficulty trying to get the bleeding to stop and the patient was then admitted to the hospital for observation. Prior to me coming in to see the patient, wound care nurse went to the patient's room and placed Gelfoam into the wound under my directions. At the time of my evaluation, there was no active bleeding coming from the sacral decubitus ulcer. Should note that the patient is anticoagulated on Eliquis. The patient denies any associated wounds at this time. The patient states she has no other associated injuries with the fall and did not hit her head. PAST MEDICAL HISTORY: Significant for chronic back pain, chronic ulceration in the sacrococcygeal region, hypertension, peripheral neuropathy, and insulin-dependent diabetes. CURRENT MEDICATIONS: Multiple including insulin and Eliquis. DRUG ALLERGIES: TORADOL. SOCIAL HISTORY: The patient does not do illicit drugs, drinks alcohol, and never has smoked. The patient currently resides in a long-term care facility. FAMILY HISTORY: Not pertinent to current medical condition. REVIEW OF SYSTEMS: CONSTITUTIONAL: The patient denies fevers or chills. NEUROLOGIC: The patient denies head injury, loss of conscious, numbness, tingling, or weakness in arms or legs. EYES: No complaints. ENT: No complaints. CARDIAC: The patient denies chest pain, palpitations, or peripheral edema. RESPIRATORY: The patient denies shortness breath, cough or wheezes. [address] [address] CONSULTATION Name: JACOB HANNON Room #: 408-P [facility] IN M.R.#: [id number] Admission: 11/15/17 Attend Phys: Osman Engle MD Discharge: Date of : 64 Report #: [id number] GASTROINTESTINAL: The patient denies nausea, vomiting or abdominal pain. GENITOURINARY: The patient denies urgency or frequency. MUSCULOSKELETAL: The patient has pain in her low back. SKIN: Open sacrococcygeal decubitus ulcer, which had active bleeding earlier this morning. PHYSICAL EXAMINATION: VITAL SIGNS: Temperature 36.9, pulse , respiratory rate 18, BP 143/89. GENERAL: This is alert and oriented x3, pleasant black female who is in absolutely no distress. HEENT: Normocephalic, atraumatic. Mucous membranes are moist. Sclerae are white. NECK: Supple, nontender. LUNGS: Clear. HEART: Regular. ABDOMEN: Soft, otherwise nontender. BACK: Evaluation of sacrococcygeal ulcer reveals stage 4 decubitus ulcer, which is otherwise approximately 75% granulation tissue and 25% slough. There is a small area of central blood clot from the previous bleeding, with no active bleeding at this time. There is moderate amount of approximately 1 cm circumferential undermining. Stephany-wound itself is otherwise intact without significant erythema or warmth. There are no signs of actual infection. EXTREMITIES: The patient moves all extremities without difficulty. NEUROLOGIC: Cranial nerves 2-12 grossly intact. Motor and sensory grossly intact. LABORATORY DATA: White count 13.1, hemoglobin 10.5. BUN 26, creatinine 0.9, glucose was 500 on admission, it is now down to 258. Albumin is low at 2.7. IMPRESSION: 1. Chronic stage 4 sacral decubitus ulcer with a history of intractable bleeding status post fall, now resolved. 2. History of anticoagulant usage, on Eliquis. 3. Insulin-dependent diabetes. 4. Protein-calorie malnutrition -- moderate with albumin 2.7. 5. Generalized debility. PLAN: Once again, the bleeding was controlled in the wound with Gelfoam and packing. We will leave this in place for now for the next 24 hours. We will reevaluate this in the morning. If no further bleeding has occurred, we will consider a wound VAC placement when she goes back to her long-term care facility with home health nurses coming out 3 times a week due to wound VAC dressing. We will encourage her to maximize her protein supplementation for healing. [facility] [address] [place] [address] CONSULTATION Name: JACOB HANNON Room #: 408-P [facility] IN [place].#: [id number] Admission: 11/15/17 Attend Phys: Osman Egnle MD Discharge: Date of : 64 Report #: [id number] Continue with low air loss mattress at her facility; however, turn every 2 hours. We will continue to follow the patient while she is here. By: 1418 1949 Ruiz Wellington MD /nt
--- NOTE | ~2017-11-15 | HC ---
[facility] [place] [address] CONSULTATION Name: JACOB HANNON Room #: 429-P [facility] IN M.R.#: [id number] Admission: 11/15/17 Attend Phys: Osman Engle MD Discharge: 11/23/17 Date of : 64 Report #: [id number] THIS REPORT FOR: //name// CC: Goyo Wellington DATE OF SERVICE: 11/18/2017 REASON FOR CONSULTATION: Acute kidney injury. HISTORY OF PRESENT ILLNESS: This chronically ill patient resides in an extended care facility, severe advanced lung disease with bronchiectasis and she also has chronic sacral pressure wound, has had cardiac arrhythmias and chronic debility. She presented here with worsening pain at the site of her sacral wound after slipping and falling. Workup has shown no osteomyelitis at the site and no sacral fractures. Since admission, she has had deteriorating mental status, decreased urine output and rising serum creatinine which was 0.9 at the time of admission and has now risen to 3.7 with low urine output. PAST MEDICAL HISTORY: I can get absolutely no history from the patient barely arousable and there was little history on the chart except for that in the electronic medical record. I have no records from prior to this admission. She typically does not come to this hospital. She apparently has had some hypertension and according to records that I have may be chronically steroid dependent and has of course been treated for the arrhythmias as we mentioned. She has had previous sinus surgery, fibroid tumors, ablation of her cardiac arrhythmias and diabetes mellitus is listed as well. REVIEW OF SYSTEMS: Cannot be taken. SOCIAL HISTORY: In the chart says she has never been a smoker. FAMILY HISTORY: In the chart says no pertinent family history. PHYSICAL EXAMINATION: GENERAL: This is an extremely ill appearing patient. I could not really arouse her. She is on CPAP. SKIN: Shows slightly poor turgor. SKELETAL: Shows her to be pretty much curled up in the position with a dressing over her sacral wound. HEENT: Extraocular movements cannot be tested. There is no scleral icterus. Hearing and vision cannot be tested. CPAP is in place. NECK: I hear no carotid bruits. CHEST: Shows coarse breath sounds. HEART: Tones are distant. [facility] [address] [place] [address] CONSULTATION Name: JACOB HANNON Room #: 429-[facility] IN .R.#: [id number] Admission: 11/15/17 Attend Phys: Osman Engle MD Discharge: 11/23/17 Date of : 64 Report #: [id number] ABDOMEN: Quite soft. EXTREMITIES: Show no edema. LABORATORY DATA: Blood gases hypercapnic with pCO2 running in the 50-60 range. Urinalysis showed glycosuria, but no proteinuria and what appeared to be somewhat of a dirty sample, but yeast were present as were white and red cells, lots of squamous cells, so this may not be an accurate sample. White count is 14.8, hemoglobin is only 7.2 and platelets 200,000. Currently sodium 134, potassium up to 5.7, chloride 101, bicarbonate 26, creatinine 3.7 and BUN 54. ASSESSMENT: 1. Acute kidney injury. She appears to be volume depleted. IV fluids were given and urine output seems to be picking up. I will check urine sodium and creatinine and renal sonogram for completeness. I am a bit worried that she may be chronically steroid dependent, has now been 3 days off of any steroid support and this may be playing some role in her apparent collapse. In any event, the kidneys are worsening. My understanding is that she is a full code and a dialysis candidate and we may need to proceed in that direction if we do not see some improvement and we will recheck her labs here a little bit later in the day. 2. Severe chronic lung disease with bronchiectasis and chronic infection. 3. Chronic sacral wound. 4. Severe chronic debility with group home existence. 5. History of atrial fibrillation with ablation. 6. Possible chronic steroid dependence. 7. Apparent chronic narcotic usage. <ELECTRONICALLY SIGNED> By: Kevin Parikh MD 11/24/17 1045 0956 2114 Kevin Parikh MD /nt
[2017-11-15 02:50] VITALS: BP 143/71
[2017-11-15 03:15] LABS: HEMATOCRIT 33.7 % (37.0-47.0); HEMOGLOBIN 10.5 gm/dL (12.0-15.0); MCH 27.8 pg (26.0-34.0); MCHC 31.1 g/dL (28.0-37.0); MCV 89.2 fL (80.0-100.0); PLATELET COUNT 293 thou/uL (150-400); RBC 3.78 mil/uL (4.20-5.00); RDW 16.5 % (10.5-14.5); WBC 13.1 thou/uL (4.0-11.0)
[2017-11-15 03:26] LABS: CALCIUM 8.8 mg/dL (8.5-10.1); CREATININE 0.9 mg/dL (0.6-1.0); POTASSIUM 4.8 mmol/L (3.5-5.1)
[2017-11-15 03:28] LABS: ALBUMIN 2.7 g/dL (3.4-5.0); TOTAL BILIRUBIN 0.2 mg/dL (<0.1-1.0); TOTAL PROTEIN 6.6 g/dL (6.4-8.2)
[2017-11-15] MEDS ORDERED: CELEXA20 MG PO (03:40)
[2017-11-15] MEDS ORDERED: FENOFIBRATE160 MG PO (03:41)
[2017-11-15] MEDS ORDERED: LEVAQUIN 500 M500 M2 PO (03:42)
[2017-11-15] MEDS ORDERED: LASIX 20 MG TAB20 MG PO (03:42)
[2017-11-15] MEDS ORDERED: LISINOPRIL20 MG PO (03:43)
[2017-11-15] MEDS ORDERED: MAGOX 400400 MG PO (03:43)
[2017-11-15] MEDS ORDERED: CLARITIN10 MG PO (03:43)
[2017-11-15] MEDS ORDERED: MULTIVITAMINS1 EAC7 PO (03:45)
[2017-11-15] MEDS ORDERED: VITAMIN D35000 UNI1 PO (03:46)
[2017-11-15] MEDS ORDERED: XANAX 0.25 MG0.25 MG PO (03:47)
[2017-11-15] MEDS ORDERED: ELIQUIS5 MG PO (03:51)
[2017-11-15] MEDS ORDERED: IRON325 PO (04:06)
[2017-11-15] MEDS ORDERED: GABAPENTIN 100100 MG PO (04:07)
[2017-11-15] MEDS ORDERED: LIPITOR 20 MG T20 M1 PO (04:07)
[2017-11-15] MEDS ORDERED: ZOLPIDEM TARTRA10 MG PO (04:10)
[2017-11-15] MEDS ORDERED: MELATONIN3 MG PO (04:10)
[2017-11-15] MEDS ORDERED: DIPHENHIST50 MG PO (04:11)
[2017-11-15] MEDS ORDERED: LEVEMIR SUBQ (04:23)
[2017-11-15] MEDS ORDERED: OXYCODONE HCL 55 MG PO (04:24)
[2017-11-15] MEDS ORDERED: VICKS VAPORUB O50 GM (04:25)
[2017-11-15] MEDS ORDERED: NOVOLOG100 UNIT/1 SUBQ (04:26)
[2017-11-15 04:30] LABS: ABSOLUTE NEUTROPHILS 9.8 thou/uL (1.4-8.2); ANISOCYTOSIS 1+; MYELOCYTES 2 %; POLYCHROMASIA 1+; PROMYELOCYTES 1 %
[2017-11-15 05:13] VITALS: BP 143/89
[2017-11-15 05:27] VITALS: BP 143/89
[2017-11-15 06:00] VITALS: BP 120/64
[2017-11-15 15:50] VITALS: BP 104/65
[2017-11-15 19:26] VITALS: BP 119/54
[2017-11-16 04:00] VITALS: BP 117/69
[2017-11-16 05:29] LABS: HEMATOCRIT 27.8 % (37.0-47.0); HEMOGLOBIN 8.6 gm/dL (12.0-15.0); MCH 27.4 pg (26.0-34.0); MCHC 30.9 g/dL (28.0-37.0); MCV 88.9 fL (80.0-100.0); RBC 3.13 mil/uL (4.20-5.00); RDW 16.3 % (10.5-14.5); WBC 17.2 thou/uL (4.0-11.0)
[2017-11-16 05:43] LABS: CALCIUM 8.7 mg/dL (8.5-10.1); CREATININE 1.3 mg/dL (0.6-1.0); POTASSIUM 4.3 mmol/L (3.5-5.1)
[2017-11-16 07:17] VITALS: BP 117/96
[2017-11-16 15:50] VITALS: BP 140/119
[2017-11-16 16:42] LABS: URINE BILIRUBIN NEGATIVE (Negative); URINE BLOOD NEGATIVE (Negative); URINE CLARITY CLEAR; URINE COLOR YELLOW; URINE GLUCOSE-RANDOM* 3+ (Negative); URINE KETONES TRACE (Negative); URINE NITRITE-REFLEX NEGATIVE (Negative); URINE PROTEIN (DIPSTICK) NEGATIVE (Negative); URINE SPECIFIC GRAVITY 1.025 (1.005-1.035); URINE UROBILINOGEN 0.2 E.U./dl (0.2-1.0)
[2017-11-16 16:44] LABS: URINE LEUKOCYTES-REFLEX 1+ (Negative)
[2017-11-16 16:58] LABS: MUCUS 4-6 Moderate strn/LPF (None Seen); SQUAMOUS >10 Many /LPF (0-3)
[2017-11-16 16:59] LABS: CASTS None Seen /LPF (None Seen); CRYSTALS None Seen /LPF (None Seen); URINE WBC-REFLEX >25 Many /HPF (0-5); YEAST-REFLEX Present (None Seen)
[2017-11-16 20:44] VITALS: BP 152/114
[2017-11-17] VITALS (7 sets, daily range): BP systolic 74–158; BP diastolic 33–113
[2017-11-17 06:05] LABS: HEMATOCRIT 26.3 % (37.0-47.0); HEMOGLOBIN 8.3 gm/dL (12.0-15.0); MCH 28.1 pg (26.0-34.0); MCHC 31.5 g/dL (28.0-37.0); MCV 89.1 fL (80.0-100.0); RBC 2.95 mil/uL (4.20-5.00); RDW 16.1 % (10.5-14.5); WBC 17.7 thou/uL (4.0-11.0)
[2017-11-17 06:13] LABS: CREATININE 1.9 mg/dL (0.6-1.0); POTASSIUM 4.9 mmol/L (3.5-5.1)
[2017-11-18] VITALS (20 sets, daily range): BP systolic 73–166; BP diastolic 44–97
[2017-11-18 04:40] LABS: HEMATOCRIT 22.5 % (37.0-47.0); HEMOGLOBIN 7.2 gm/dL (12.0-15.0); MCH 28.1 pg (26.0-34.0); MCHC 31.9 g/dL (28.0-37.0); MCV 88.3 fL (80.0-100.0); RBC 2.55 mil/uL (4.20-5.00); RDW 16.5 % (10.5-14.5); WBC 14.8 thou/uL (4.0-11.0)
[2017-11-18 04:53] LABS: CALCIUM 8.2 mg/dL (8.5-10.1); POTASSIUM 5.7 mmol/L (3.5-5.1)
[2017-11-18 05:03] LABS: CREATININE 3.7 mg/dL (0.6-1.0)
[2017-11-18 05:29] LABS: BE(vivo) -1.4 mmol/L (-2 to +3); HCO3 25.5 mmol/L (22.0-26.0); PCO2 55.9 mmHg (35.0-45.0); PO2 81.5 mmHg (80.0-100.0); pH 7.277 (7.360-7.450); sO2 94.4 % (92.0-98.0)
[2017-11-18 07:41] LABS: BE(vivo) -1.6 mmol/L (-2 to +3); PCO2 51.9 mmHg (35.0-45.0); PO2 167.9 mmHg (80.0-100.0); sO2 98.9 % (92.0-98.0)
[2017-11-18 10:26] LABS: URINE CREATININE-RANDOM* 118.1 mg/dL
[2017-11-18 13:54] LABS: BE(vivo) -4.7 mmol/L (-2 to +3); HCO3 22.5 mmol/L (22.0-26.0); PCO2 53.1 mmHg (35.0-45.0); PO2 63.5 mmHg (80.0-100.0); pH 7.244 (7.360-7.450); sO2 88.2 % (92.0-98.0)
[2017-11-18 14:59] LABS: ALBUMIN 2.2 g/dL (3.4-5.0); CREATININE 3.5 mg/dL (0.6-1.0); PHOSPHORUS 6.5 mg/dL (2.5-4.9)
[2017-11-18 15:03] LABS: POTASSIUM 6.2 mmol/L (3.5-5.1)
[2017-11-18 18:02] LABS: BE(vivo) -7.3 mmol/L (-2 to +3); HCO3 18.8 mmol/L (22.0-26.0); PCO2 40.2 mmHg (35.0-45.0); PO2 144.4 mmHg (80.0-100.0); sO2 98.6 % (92.0-98.0)
[2017-11-18 18:49] LABS: pH 7.287 (7.360-7.450)
[2017-11-18 20:10] LABS: ALBUMIN 2.1 g/dL (3.4-5.0); CALCIUM 7.4 mg/dL (8.5-10.1); CREATININE 3.2 mg/dL (0.6-1.0); PHOSPHORUS 5.7 mg/dL (2.5-4.9); POTASSIUM 5.5 mmol/L (3.5-5.1)
[2017-11-19] VITALS (23 sets, daily range): BP systolic 66–126; BP diastolic 50–89
[2017-11-19 05:14] LABS: BE(vivo) -4.5 mmol/L (-2 to +3); HCO3 22.5 mmol/L (22.0-26.0); pH 7.271 (7.360-7.450); sO2 98.1 % (92.0-98.0)
[2017-11-19 06:16] LABS: ALBUMIN 2.1 g/dL (3.4-5.0); CALCIUM 7.4 mg/dL (8.5-10.1); CREATININE 2.5 mg/dL (0.6-1.0); PHOSPHORUS 5.1 mg/dL (2.5-4.9); POTASSIUM 5.3 mmol/L (3.5-5.1)
[2017-11-20] VITALS (17 sets, daily range): BP systolic 98–147; BP diastolic 55–96
[2017-11-20 04:57] LABS: ALBUMIN 1.9 g/dL (3.4-5.0); CALCIUM 7.1 mg/dL (8.5-10.1); PHOSPHORUS 3.1 mg/dL (2.5-4.9); POTASSIUM 4.6 mmol/L (3.5-5.1)
[2017-11-20 04:58] LABS: CREATININE 1.3 mg/dL (0.6-1.0); RBC 2.1 mil/uL (4.20-5.00)
[2017-11-20 05:05] LABS: MCH 28.4 pg (26.0-34.0); MCHC 31.8 g/dL (28.0-37.0); MCV 89.3 fL (80.0-100.0); RDW 16.3 % (10.5-14.5); WBC 11.5 thou/uL (4.0-11.0)
[2017-11-20 05:07] LABS: HEMATOCRIT 18.8 % (37.0-47.0)
[2017-11-20 13:34] LABS: HEMOGLOBIN 7.5 gm/dL (12.0-15.0)
[2017-11-21 03:43] LABS: HEMATOCRIT 24.6 % (37.0-47.0); HEMOGLOBIN 8.1 gm/dL (12.0-15.0); MCH 28.7 pg (26.0-34.0); MCHC 32.8 g/dL (28.0-37.0); MCV 87.7 fL (80.0-100.0); RBC 2.81 mil/uL (4.20-5.00); RDW 15.8 % (10.5-14.5)
[2017-11-21 03:59] LABS: ALBUMIN 2.2 g/dL (3.4-5.0); CALCIUM 7.3 mg/dL (8.5-10.1); CREATININE 1.1 mg/dL (0.6-1.0); PHOSPHORUS 2.7 mg/dL (2.5-4.9)
[2017-11-21 04:30] VITALS: BP 119/72; BP 146/82
[2017-11-21 08:03] VITALS: BP 114/67
[2017-11-21 16:41] VITALS: BP 147/98
[2017-11-22 06:06] LABS: ALBUMIN 2.2 g/dL (3.4-5.0); CALCIUM 7.2 mg/dL (8.5-10.1); PHOSPHORUS 1.6 mg/dL (2.5-4.9); POTASSIUM 3.7 mmol/L (3.5-5.1)
[2017-11-22 08:18] VITALS: BP 134/80
[2017-11-22 20:30] VITALS: BP 163/86
[2017-11-23 04:30] VITALS: BP 124/68
[2017-11-23 05:55] LABS: HEMATOCRIT 24.7 % (37.0-47.0); MCH 28.5 pg (26.0-34.0); MCHC 32.4 g/dL (28.0-37.0); MCV 87.9 fL (80.0-100.0); PLATELET COUNT 287 thou/uL (150-400); RBC 2.81 mil/uL (4.20-5.00); RDW 15.7 % (10.5-14.5); WBC 11.3 thou/uL (4.0-11.0)
[2017-11-23 06:09] LABS: ALBUMIN 2.2 g/dL (3.4-5.0); CALCIUM 7.2 mg/dL (8.5-10.1); CREATININE 0.9 mg/dL (0.6-1.0); MAGNESIUM 1.8 mg/dL (1.8-2.4); POTASSIUM 4.2 mmol/L (3.5-5.1); TOTAL BILIRUBIN 0.4 mg/dL (<0.1-1.0)
[2017-11-23 07:30] VITALS: BP 124/71
[2017-11-23 08:55] LABS: ABSOLUTE NEUTROPHILS 10.1 thou/uL (1.4-8.2); NUCLEATED RBCS 8 /100WBC; PLATELET ESTIMATE NORMAL
[2017-11-23] MEDS ORDERED: PREDNISONE 20 M20 MG PO (12:37)
== END 2017-11-23 14:54 | DRG 871 ==
LOC: ER 02:49 → EROBS 04:49 → 4E 04:49 → 4N 05:23 → 3W 11-17 14:17 → ICU 11-18 12:24 → 4E 11-20 18:38
PROVIDERS: Emergency Medicine; Hospitalist; Internal Medicine Nephrology; Internal Medicine Pulmonary Disease; Nurse Practitioner; Nurse Practitioner Acute Care; Nurse Practitioner Family
PROC: 5A09457 Assistance with Respiratory Ventilation, 24-96 Consecutive Hours, Continuous Positive Airway Pressure (ICD-10-PCS; principal; 2017-11-18)
PROC: 30233N1 Transfusion of Nonautologous Red Blood Cells into Peripheral Vein, Percutaneous Approach (ICD-10-PCS; 2017-11-20)
PROC: 5A09357 Assistance with Respiratory Ventilation, Less than 24 Consecutive Hours, Continuous Positive Airway Pressure (ICD-10-PCS; 2017-11-20)
PROC: 5A09357 Assistance with Respiratory Ventilation, Less than 24 Consecutive Hours, Continuous Positive Airway Pressure (ICD-10-PCS; 2017-11-21)
PROC: 5A09357 Assistance with Respiratory Ventilation, Less than 24 Consecutive Hours, Continuous Positive Airway Pressure (ICD-10-PCS; 2017-11-22)
PROC: 5A09357 Assistance with Respiratory Ventilation, Less than 24 Consecutive Hours, Continuous Positive Airway Pressure (ICD-10-PCS; 2017-11-23)
DX: A41.9 Sepsis, unspecified organism (principal); G92 Toxic encephalopathy; L89.154 Pressure ulcer of sacral region, stage 4; J96.01 Acute respiratory failure with hypoxia; J96.02 Acute respiratory failure with hypercapnia; E43 Unspecified severe protein-calorie malnutrition; N17.9 Acute kidney failure, unspecified; M30.1 Polyarteritis with lung involvement [Churg-Strauss]; N39.0 Urinary tract infection, site not specified; K21.9 Gastro-esophageal reflux disease without esophagitis; E11.65 Type 2 diabetes mellitus with hyperglycemia; G89.29 Other chronic pain; M54.9 Dorsalgia, unspecified; E11.42 Type 2 diabetes mellitus with diabetic polyneuropathy; J44.9 Chronic obstructive pulmonary disease, unspecified; G47.33 Obstructive sleep apnea (adult) (pediatric); F41.8 Other specified anxiety disorders; D64.9 Anemia, unspecified; I12.9 Hypertensive chronic kidney disease with stage 1 through stage 4 chronic kidney disease, or unspecified chronic kidney disease; E11.22 Type 2 diabetes mellitus with diabetic chronic kidney disease; R58 Hemorrhage, not elsewhere classified; E87.5 Hyperkalemia; T50.8X5A Adverse effect of diagnostic agents, initial encounter; I48.91 Unspecified atrial fibrillation; N14.1 Nephropathy induced by other drugs, medicaments and biological substances; W05.0XXA Fall from non-moving wheelchair, initial encounter; Z79.01 Long term (current) use of anticoagulants; Z79.899 Other long term (current) drug therapy; Z79.4 Long term (current) use of insulin; Z88.2 Allergy status to sulfonamides; Z88.8 Allergy status to other drugs, medicaments and biological substances; Z79.52 Long term (current) use of systemic steroids; Z91.048 Other nonmedicinal substance allergy status; Y92.89 Other specified places as the place of occurrence of the external cause; Y93.89 Activity, other specified; Y99.8 Other external cause status; Z68.26 Body mass index [BMI] 26.0-26.9, adult
CPT/HCPCS: 10078; 10783; 10790; 10879; 27000

== ENCOUNTER → 2018-01-12 | Outpatient (CLI) | payer OTHER ==
[~2018-01-12] MED LIST changes: +DIPHENHIST50 MG PO; +ELIQUIS5 MG PO; +GABAPENTIN 100100 MG PO; +LASIX 20 MG TAB20 MG PO; +LEVAQUIN 500 M500 M2 PO; +MAGOX 400400 MG PO; +MULTIVITAMINS1 EAC7 PO; +VICKS VAPORUB O50 GM; +VITAMIN D35000 UNI1 PO; +XANAX 0.25 MG0.25 MG PO; +ZOLPIDEM TARTRA10 MG PO
== END ==
LOC: HYPER 06:58
DX: E11.622 Type 2 diabetes mellitus with other skin ulcer (principal); L89.154 Pressure ulcer of sacral region, stage 4; E11.40 Type 2 diabetes mellitus with diabetic neuropathy, unspecified; I10 Essential (primary) hypertension; N19 Unspecified kidney failure; G47.30 Sleep apnea, unspecified; J44.9 Chronic obstructive pulmonary disease, unspecified; F41.9 Anxiety disorder, unspecified; Z79.4 Long term (current) use of insulin; Z79.84 Long term (current) use of oral hypoglycemic drugs; Z90.710 Acquired absence of both cervix and uterus; Z98.49 Cataract extraction status, unspecified eye

== ENCOUNTER → 2018-03-09 | Outpatient (CLI) | payer OTHER | LOC: HYPER 06:58 | DX: E11.622 Type 2 diabetes mellitus with other skin ulcer (principal); L98.491 Non-pressure chronic ulcer of skin of other sites limited to breakdown of skin; L89.154 Pressure ulcer of sacral region, stage 4; E11.40 Type 2 diabetes mellitus with diabetic neuropathy, unspecified; I10 Essential (primary) hypertension; J44.9 Chronic obstructive pulmonary disease, unspecified; N19 Unspecified kidney failure; G47.30 Sleep apnea, unspecified; Z79.4 Long term (current) use of insulin; Z79.84 Long term (current) use of oral hypoglycemic drugs ==

== ENCOUNTER → 2018-04-06 | Outpatient (CLI) | payer OTHER | LOC: HYPER 06:57 | DX: E11.622 Type 2 diabetes mellitus with other skin ulcer (principal); L98.492 Non-pressure chronic ulcer of skin of other sites with fat layer exposed; L89.154 Pressure ulcer of sacral region, stage 4; L89.44 Pressure ulcer of contiguous site of back, buttock and hip, stage 4; E11.40 Type 2 diabetes mellitus with diabetic neuropathy, unspecified; G47.30 Sleep apnea, unspecified; I10 Essential (primary) hypertension; J44.9 Chronic obstructive pulmonary disease, unspecified; K21.9 Gastro-esophageal reflux disease without esophagitis; N19 Unspecified kidney failure; F41.9 Anxiety disorder, unspecified; Z79.4 Long term (current) use of insulin; Z79.84 Long term (current) use of oral hypoglycemic drugs ==

== ENCOUNTER 2018-05-14 10:29 | Emergency (ER) | payer OTHER ==
[~2018-05-14] VITALS: Ht 172.7 cm; Wt 113.4 kg
== END 2018-05-14 14:20 ==
LOC: ER 10:29
DX: I46.9 Cardiac arrest, cause unspecified (principal); J44.9 Chronic obstructive pulmonary disease, unspecified; K21.9 Gastro-esophageal reflux disease without esophagitis; I10 Essential (primary) hypertension; F41.9 Anxiety disorder, unspecified; E11.9 Type 2 diabetes mellitus without complications; G62.9 Polyneuropathy, unspecified; Z79.4 Long term (current) use of insulin; Z88.8 Allergy status to other drugs, medicaments and biological substances; Z88.2 Allergy status to sulfonamides